=== PATIENT | female | born 1995 | race African-American/Black ===

== ENCOUNTER 2022-11-07 11:02 | Emergency (ER) | payer MEDICAID ==
[~2022-11-07] VITALS: Ht 180.3 cm; Wt 62.0 kg
[2022-11-07 11:35] VITALS: TEMP 98.2; O2SAT 99
[2022-11-07] MEDS ORDERED: KETOROLAC 15MG/ML VIAL IV NR (12:13)
[2022-11-07] MEDS ORDERED: ACETAMINOPHEN WITH CODEINE 300/30MG TABLET PO NR (12:15)
[2022-11-07 12:30] VITALS: BP 113/75; PULSE 83; RESP 18
[2022-11-07] MEDS ORDERED: KETOROLAC 60MG/2ML VIAL IM ONE (12:30)
[2022-11-07] MEDS ORDERED: IBUP-2028 PO (13:06)
[2022-11-07] MEDS ORDERED: T3 PO (13:06)
== END 2022-11-07 15:20 | disposition home or self-care (01) ==
LOC: ER 11:02
DX: M54.9 Dorsalgia, unspecified (principal)
CPT/HCPCS: 81025; 96372; 99283; J1885; Z7610 ×2